=== PATIENT | male | born 1995 ===

== ENCOUNTER 2016-11-28 11:42 | Emergency (ER) | payer BC ==
[2016-11-28 12:30] VITALS: BP 109/46
--- NOTE | 2016-11-28 12:42 | UC ---
Throat Pain/Nasal Roque HPI - HPI Summary HPI Summary: ST with swollen tonsils starting 6 days ago. Had fever for the first 24 hours, not since then. Last week L tonsil was worse than R, now mainly pain in R side with radiation to R ear. Denies rash, trouble breathing or eating. - History of Current Complaint Chief Complaint: UCRespiratory Stated Complaint: THROAT,EAR COMPLIANT Time Seen by Provider: 11/28/16 12:20 Hx Obtained From: Patient Onset/Duration: Gradual Onset, Lasting Days Severity: Mild Cough: None Associated Signs & Symptoms: Positive: Fever - Allergies/Home Medications Allergies/Adverse Reactions: Allergies Allergy/AdvReac Type Severity Reaction Status Date / Time No Known Allergies Allergy Verified 11/28/16 12:31 Home Medications: Home Medications Ibuprofen TAB* [Advil TAB*] 400 mg PO Q8H PRN 11/28/16 [History Confirmed ] Penicillin Leftover Unknown Mg 1 tab PO TID 11/28/16 [History Confirmed ] PMH/Surg Hx/FS Hx/Imm Hx Previously Healthy: Yes - Surgical History Surgical History: None - Family History Known Family History: Negative: Diabetes - Social History Occupation: Student Lives: Alone Alcohol Use: Weekly Alcohol Amount: 10 Substance Use Type: None Smoking Status (MU): Never Smoked Tobacco Review of Systems Constitutional: Fever, Chills Skin: Negative Eyes: Negative ENT: Sore Throat Respiratory: Negative Cardiovascular: Negative Gastrointestinal: Negative Genitourinary: Negative Motor: Negative Neurovascular: Negative Musculoskeletal: Negative Neurological: Negative Psychological: Negative All Other Systems Reviewed And Are Negative: Yes Physical Exam Triage Information Reviewed: Yes Appearance: Well-Appearing, No Pain Distress, Well-Nourished Vital Signs: Initial Vital Signs Temp 99 F 11/28/16 12:20 Pulse 82 11/28/16 12:20 BP 109/46 11/28/16 12:20 Vital Signs Reviewed: Yes Eye Exam: Normal ENT: Positive: Pharyngeal erythema, TMs normal, Tonsillar swelling, Tonsillar exudate - R>L. Negative: Nasal congestion, Nasal drainage Dental Exam: Normal Neck: Positive: Enlarged Nodes @ - tonsillar Respiratory Exam: Normal Respiratory: Positive: Chest non-tender, Lungs clear, Normal breath sounds, No respiratory distress, No accessory muscle use Cardiovascular Exam: Normal Cardiovascular: Positive: RRR, No Murmur Musculoskeletal Exam: Normal Neurological Exam: Normal Psychological Exam: Normal Skin Exam: Normal Throat Pain/Nasal Course/Dx - Differential Dx/Diagnosis Provider Diagnoses: tonsillitis, likely viral Discharge - Discharge Plan Condition: Stable Disposition: HOME Prescriptions: predniSONE TAB* [Deltasone TAB*] 50 mg PO DAILY #3 tab Patient Education Materials: Tonsillitis (ED) Additional Instructions: Rapid strep negative, mono testing pending. Come back or go to the emergency department if you have difficulty with breathing or swallowing.
[2016-11-28 18:37] LABS: EBV Response YES
[2016-11-28 18:49] LABS: Hematocrit 45 % (42-52); Hemoglobin 15.3 g/dl (14.0-18.0); Mean Corpuscular HGB Conc 34 g/dl (31-36); Mean Corpuscular Hemoglobin 31 pg (27-31); Mean Corpuscular Volume 91 fL (80-94); Mean Platelet Volume 8 um3 (7.4-10.4); Red Blood Count 4.99 10^6/ul (4.0-5.4); Red Cell Distribution Width 13 % (10.5-15); White Blood Count 14.4 10^3/ul (3.5-10.8)
[2016-11-28 19:00] LABS: Albumin 4.3 g/dL (3.2-5.2); BUN/Creatinine Ratio 8.3 (8-20); Calcium 9.8 mg/dL (8.6-10.3); EGFR African American 110.9 (>60); EGFR Non-African American 86.2 (>60); Globulin 3.2 g/dL (2-4); Potassium 4.1 mmol/L (3.5-5.0); Total Bilirubin 1.1 mg/dL (0.2-1.0); Total Protein 7.5 g/dL (6.4-8.9)
[2016-11-28 19:57] LABS: Mono Internal Control QC Line Present
[2016-11-30 14:51] LABS: EBV Capsid Ag IgG Ab Positive (Negative); EBV Capsid Ag IgM Ab Positive (Negative)
== END 2016-11-28 13:26 | disposition home or self-care (01) ==
LOC: UCCORT 11:42
DX: J03.90 Acute tonsillitis, unspecified (principal)
CPT/HCPCS: 36415; 80053; 85025; 86308; 86664; 86665; 87651; 99202; G0463